=== PATIENT | female | born 1990 | race Two or more races ===

== ENCOUNTER 2018-12-16 09:27 | Emergency (ER) | payer OTHER ==
[2018-12-16] MEDS ORDERED: NS 1,000 ML IV ONE (09:29)
[2018-12-16] MEDS ORDERED: ONDANSETRON 4 MG/2 ML VIAL IVP ONE (09:53)
[2018-12-16] MEDS ORDERED: HYDROmorphONE/DILAUDID 2 MG/ML INJ IVP ONE ×2 (09:53→12:17)
--- NOTE | 2018-12-16 09:53 | EDPHY ---
H & P Time Seen by Provider: 12/16/18 09:29 HPI/ROS: HPI Right lower abdominal pain. 28-year-old female by private vehicle with her friend. This patient reports that yesterday she developed right lower quadrant abdominal discomfort described as an aching and cramping. She reports that this morning when she woke up this pain was much worse. She has had some associated nausea but no vomiting. She denies fever. No urinary complaints. No prior abdominal surgical history. Last meal was at 7:30 a.m. She has had some loose stool. No bloody or black stool. ROS: Constitutional: No fever, no chills. No weakness. Eyes: No discharge. No changes in vision. ENT: No sore throat. No nasal congestion or rhinorrhea. Respiratory: No cough. No shortness of breath. Cardiac: No chest pain, no palpitations. Gastrointestinal: As above. Genitourinary: No hematuria. No dysuria or increased frequency with urination. Musculoskeletal: No back pain. No neck pain. No myalgias or arthralgias. Skin: No rashes. Neurological: No headache. No focal weakness or altered sensation. Past medical history: She is allergic to sulfa medication. History of type 2 diabetes. She takes metformin. Social history: Nonsmoker. No alcohol. Here with her friend. Physical Exam: General Appearance: Alert, she appears uncomfortable but she is not in distress. This patient is responding to questions appropriately and in full sentences. This patient appears well-hydrated and well-nourished. Eyes: Pupils equal and round no pallor or injection. No lid edema, erythema or injection. Respiratory: There are no retractions, lungs are clear to auscultation with good air movement bilaterally. Cardiovascular: Regular rate and rhythm. No murmur. Gastrointestinal: Obese habitus. Abdomen is soft with right lower quadrant tenderness on palpation, no masses, bowel sounds normal. No focal tenderness at McBurney's point. No Catalan sign. Neurological: Motor sensory function is grossly intact. Cranial nerves are normal. Gait is normal. Skin: Warm and dry, no rashes. Musculoskeletal: Neck is supple and nontender. Extremities are symmetrical. All joints range without pain or impingement. Psychiatric: No agitation. No depression. Database: EKG: Imaging: CT abdomen with IV contrast: The appendix is well visualized and is normal. The ovaries it appeared somewhat enlarged with the right side being greater than the left side. Possible sebaceous cyst in the left pelvic area. Otherwise negative study. Results were discussed with staff radiologist Dr. Melvin Broussard. He recommends a pelvic ultrasound to better evaluate the ovaries. Pelvic ultrasound: Good blood flow to both ovaries. Findings consistent with polycystic ovarian disease. Otherwise an unremarkable study. Results were discussed with staff radiologist . Procedures: Emergency department course: Triage vital signs reviewed and are unremarkable. IV was placed. She was started on IV normal saline with 1 L to be given over the next hour. She will be given IV hydromorphone in 0.5 mg as needed for pain. She will be given 4 mg of IV Zofran. CT imaging of the abdomen and pelvis will be obtained after verification of a normal creatinine and negative . She endorses workup. 2:05 p.m., the patient was re-evaluated briefly. Results of her ultrasound and CT scan discussed with her and her significant other who is now in the room. 2:25 p.m., patient re-evaluated, resting comfortably at this time. Results of diagnostic workup discussed with her thoroughly. Repeat abdominal exam she is soft, nontender nondistended. I discussed CT finding of possible sebaceous cyst left pelvic area. I will refer her to a general surgeon affiliated with the hospital have this further evaluated. I do not believe it is a source of her pain or requires further emergency department management. She does feel comfortable going home at this time with her boyfriend who is in the room and who will be driving. Follow-up and return to emergency department precautions of thoroughly been reviewed with her. All of her questions were answered. She was discharged from the emergency department in good condition. Differential Diagnosis: The differential diagnosis on this patient includes but is not limited to appendicitis, constipation, urinary tract infection, ovarian cyst. This represents a partial list of diagnoses considered. These considerations are based on history, physical exam, past history, reassessment and diagnostic testing. Smoking Status: Never smoked Constitutional: Initial Vital Signs Temperature (C) 36.5 C 12/16/18 09:35 Heart Rate 81 12/16/18 09:35 Respiratory Rate 16 12/16/18 09:35 Blood Pressure 134/84 H 12/16/18 09:35 O2 Sat (%) 100 12/16/18 09:35 O2 Delivery Mode Room Air Allergies/Adverse Reactions: sulfamethoxazole [From Bactrim] Allergy (Verified 12/16/18 09:39) trimethoprim [From Bactrim] Allergy (Verified 12/16/18 09:39) Home Medications: Medication Instructions Recorded Metformin HCl 12/16/18 Medical Decision Making - Diagnostics Imaging Results: Imaging Impressions Abdomen CT 12/16/18 11:19 Impression: 1. Normal CT appearance of the appendix. 2. Hepatomegaly with diffuse steatosis. 3. Bilateral ovarian enlargement, right greater than left. If there is further clinical concern given the patient's acute right lower quadrant discomfort, perhaps pelvic sonography with Doppler assessment may be of benefit. 4. There is a 3.6 cm subcutaneous nodule along the lower anterior pelvic wall, probably representing a sebaceous cyst. Clinical correlation is suggested. 5. Low-suspicion for a right lower quadrant mesenteric adenitis, with a few scattered tiny lymph nodes seen. Findings were discussed with Keyon Cline MD at 12:26, on 12/16/2018. Pelvic/Renal Ultrasound 12/16/18 12:29 Impression: Bilaterally enlarged ovaries with peripherally located follicles, consistent with patient's diagnosis of PCL S. There is normal color Doppler flow in both ovaries, though torsion detorsion event can't be excluded. Findings and recommendations discussed with Keyon Cline MD at 1331 hour, 12/16/2018. - Data Points Laboratory Results: Laboratory Results 12/16/18 10:21 12/16/18 10:21 12/16/18 12/16/18 12/16/18 10:21 10:21 10:21 WBC 13.59 10^3/uL H 10^3/uL (3.80-9.50) RBC 6.02 10^6/uL H 10^6/uL (4.18-5.33) Hgb 17.1 g/dL H g/dL (12.6-16.3) Hct 49.4 % H % (38.0-47.0) MCV 82.1 fL fL (81.5-99.8) MCH 28.4 pg pg (27.9-34.1) MCHC 34.6 g/dL g/dL (32.4-36.7) RDW 12.4 % % (11.5-15.2) Plt Count 354 10^3/uL 10^3/uL (150-400) MPV 10.1 fL fL (8.7-11.7) Neut % (Auto) 67.2 % % (39.3-74.2) Lymph % (Auto) 23.0 % % (15.0-45.0) Stephenson % (Auto) 7.1 % % (4.5-13.0) Eos % (Auto) 1.6 % % (0.6-7.6) Baso % (Auto) 0.4 % % (0.3-1.7) Nucleat RBC Rel Count 0.0 % % (0.0-0.2) Absolute Neuts (auto) 9.14 10^3/uL H 10^3/uL (1.70-6.50) Absolute Lymphs (auto) 3.12 10^3/uL H 10^3/uL (1.00-3.00) Absolute Monos (auto) 0.96 10^3/uL H 10^3/uL (0.30-0.80) Absolute Eos (auto) 0.22 10^3/uL 10^3/uL (0.03-0.40) Absolute Basos (auto) 0.05 10^3/uL 10^3/uL (0.02-0.10) Absolute Nucleated RBC 0.00 10^3/uL 10^3/uL (0-0.01) Immature Gran % 0.7 % % (0.0-1.1) Immature Gran # 0.10 10^3/uL 10^3/uL (0.00-0.10) Sodium 139 mEq/L mEq/L (135-145) Potassium 4.5 mEq/L mEq/L (3.5-5.2) Chloride 106 mEq/L mEq/L (97-110) Carbon Dioxide 22 mEq/l mEq/l (22-31) Anion Gap 11 mEq/L mEq/L (6-14) BUN 16 mg/dL mg/dL (7-23) Creatinine 0.7 mg/dL mg/dL (0.6-1.0) Estimated GFR > 60 Glucose 132 mg/dL H mg/dL (70-100) Calcium 10.2 mg/dL mg/dL (8.5-10.4) Beta HCG, Qual NEGATIVE Urine Color Urine Appearance Urine pH Ur Specific Guys Urine Protein Urine Ketones Urine Blood Urine Nitrate Urine Bilirubin Urine Urobilinogen Ur Leukocyte Esterase Urine RBC Urine WBC Ur Epithelial Cells Urine Mucus Urine Glucose 12/16/18 09:55 WBC RBC Hgb Hct MCV MCH MCHC RDW Plt Count MPV Neut % (Auto) Lymph % (Auto) Stephenson % (Auto) Eos % (Auto) Baso % (Auto) Nucleat RBC Rel Count Absolute Neuts (auto) Absolute Lymphs (auto) Absolute Monos (auto) Absolute Eos (auto) Absolute Basos (auto) Absolute Nucleated RBC Immature Gran % Immature Gran # Sodium Potassium Chloride Carbon Dioxide Anion Gap BUN Creatinine Estimated GFR Glucose Calcium Beta HCG, Qual Urine Color YELLOW Urine Appearance HAZY Urine pH 5.0 (5.0-7.5) Ur Specific Guys 1.029 (1.002-1.030) Urine Protein NEGATIVE (NEGATIVE) Urine Ketones NEGATIVE (NEGATIVE) Urine Blood NEGATIVE (NEGATIVE) Urine Nitrate NEGATIVE (NEGATIVE) Urine Bilirubin NEGATIVE (NEGATIVE) Urine Urobilinogen NEGATIVE EU EU (0.2-1.0) Ur Leukocyte Esterase NEGATIVE (NEGATIVE) Urine RBC 3-5 /hpf H /hpf (0-3) Urine WBC 1-3 /hpf /hpf (0-3) Ur Epithelial Cells 2+ /lpf H /lpf (NONE-1+) Urine Mucus 2+ /lpf H /lpf (NONE-1+) Urine Glucose NEGATIVE (NEGATIVE) Medications Given: Discontinued Medications Hydromorphone HCl (Dilaudid) 0.5 mg IVP EDNOW ONE Stop: 12/16/18 09:54 Last Admin: 12/16/18 10:26 Dose: 0.5 mg Hydromorphone HCl (Dilaudid) 0.5 mg IVP EDNOW ONE Stop: 12/16/18 12:18 Last Admin: 12/16/18 12:30 Dose: 0.5 mg Sodium Chloride (Ns) 1,000 mls @ 0 mls/hr IV EDNOW ONE; Wide Open PRN Reason: Protocol Stop: 12/16/18 09:30 Last Admin: 12/16/18 10:25 Dose: 1,000 mls Ondansetron HCl (Zofran) 4 mg IVP EDNOW ONE Stop: 12/16/18 09:54 Last Admin: 12/16/18 10:28 Dose: 4 mg Departure - Departure Disposition: Home, Routine, Self-Care Clinical Impression: Lower abdominal pain Condition: Good Instructions: Acute Abdominal Pain (ED) Additional Instructions: Read and follow provided instructions. Follow-up with your primary care physician in 1-2 days for re-evaluation. I have also provided you with a referral to a general surgeon, Dr. Topher Mauricio, to further evaluate the possible left-sided pelvic sebaceous cyst which I discussed with you. This was an incidental finding on your CT scan. Dr. Mauricio will have access to all records and imaging results from your visit today. Ibuprofen dosin mg every 6 hours with meals for the next 3 days only. Take only as needed for pain. Return to the emergency department for worsening pain, fever, vomiting, blood in your stool or other serious concerns. Referrals: Topher Mauricio MD [Medical Doctor] - As per Instructions
[2018-12-16 10:43] LABS: PLATELET COUNT 354 10^3/uL (150-400)
[2018-12-16] MEDS ORDERED: IOHEXOL 300 mgI/ML (OMNIPAQUE) 150 ML BTL IV ONE (11:27)
[2018-12-16 14:42] VITALS: BP 115/78
== END 2018-12-16 14:40 | disposition home or self-care (01) ==
DX: R10.31 Right lower quadrant pain (principal); E11.9 Type 2 diabetes mellitus without complications; Z79.84 Long term (current) use of oral hypoglycemic drugs
CPT/HCPCS: 96374; J1170; J2405; Q9967